=== PATIENT | male | born 1955 | race Caucasian/White ===

== ENCOUNTER 2022-11-10 08:53 | Day surgery (SDC) | payer MEDICARE, OTHER ==
[2022-11-10 08:43] VITALS: O2SAT 98
[2022-11-10 08:47] VITALS: BP 152/78; PULSE 68
[~2022-11-10 08:53] MED LIST: DIPRIVAN 200 MG/20 ML IV ONE; Lactated Ringers 1,000 ML IV ONE; Lactated Ringers 1,000 ML IV SCH; Versed 2 MG/2 ML Injection ONE; Xylocaine-Mpf 2% 5 Ml Vial ONE
--- NOTE | 2022-11-11 08:04 | OP ---
SURGERY DATE/TIME: 11/10/2022 0742 PREOPERATIVE DIAGNOSIS: Abdominal pain. POSTOPERATIVE DIAGNOSIS: Moderate gastritis and mild gastroparesis. PROCEDURE: Esophagogastroduodenoscopy with cold forceps biopsy. SURGEON: Dr. Long. ANESTHESIA: Medications were given by the anesthesia department. BRIEF HISTORY: The patient is a 67-year-old white male patient with problems with epigastric pain. The patient was noted to be on aspirin and Trulicity. The patient previously had stents placed many years ago. The patient has been under a lot of stress recently with the loss of a grandson to pulmonary hypertension. The patient was felt the need to have endoscopic evaluation. He was appraised of the risks of the procedure including the risk of perforation, phlebitis, untoward reaction to medication, bleeding and missed lesions. The patient verbalized his understanding and desired to have the procedure performed. DESCRIPTION OF PROCEDURE: The patient was given the medications by the anesthesia department. He had continuous pulse oximetry, ECG monitoring and intermittent blood pressure monitoring during the examination. He was placed in the left lateral decubitus position. A bite block was placed and the flexible Olympus gastroscope was used to intubate the oropharynx. A view of the larynx is obtained and is normal. The scope was easily introduced in the esophagus which was normal throughout its length. The stomach was entered where normal gastric rugal folds were seen. There was the presence of some food stuff still in the stomach. We were able to negotiate these and pass the scope along the greater curvature of the stomach to the antrum. The pylorus is encountered and intubated. The duodenum inspected and found to be normal. The scope is withdrawn towards the stomach again. A retroflex view was obtained of the lesser curvature, fundus and cardia regions of the stomach. There was no significant hiatal hernia noted. The scope was redirected towards the gastric antrum and biopsies were obtained to rule out the presence of Helicobacter pylori-type organisms. The scope was then removed from the patient who tolerated the procedure well and was sent back to outpatient recovery in good condition.
== END 2022-11-10 09:06 | disposition home or self-care (01) ==
LOC: SDC 08:53
PROVIDERS: ATTEND Family Medicine
DX: K29.70 Gastritis, unspecified, without bleeding (principal); R10.9 Unspecified abdominal pain; E11.43 Type 2 diabetes mellitus with diabetic autonomic (poly)neuropathy; K31.84 Gastroparesis
CPT/HCPCS: 82947; J2250; J2704